=== PATIENT | female | born 1970 | race Caucasian/White ===

== ENCOUNTER → 2016-07-16 | Outpatient (CLI) | payer BC ==
[2016-07-16 09:47] LABS: Basophils # (A) 0.1 k/uL (0-0.2); Basophils % (A) 2 %; CH 31.1; CHCM 34.1; Eosinophils # (A) 0.1 k/uL (0-0.7); Eosinophils % (A) 2 %; HCT 43.3 % (34.0-46.0); HGB 14.5 gm/dL (11.4-16.0); Luc # (Auto) 0.12; Luc % (Auto) 2; Lymphocytes # (A) 2.2 k/uL (1.0-4.8); Lymphocytes % (A) 42 %; MCH 30.7 pg (25.0-35.0); MCHC 33.6 g/dL (31.0-37.0); MCV 91.5 fL (80.0-100.0); Mean Platelet Volume 8.7; Monocytes # (A) 0.2 k/uL (0-1.0); Monocytes % (A) 4 %; Neutrophils # (A) 2.5 k/uL (1.3-7.7); Neutrophils % (A) 47 %; RBC 4.73 m/uL (3.80-5.40); RDW 12.4 % (11.5-15.5); WBC 5.2 k/uL (3.8-10.6)
[2016-07-16 10:22] LABS: Bilirubin, Delta 0.2 mg/dL (0.0-0.2); Calcium 10.2 mg/dL (8.4-10.2); Potassium 4.7 mmol/L (3.5-5.1); Total Bilirubin 1.1 mg/dL (0.2-1.3); Total Protein 7.6 g/dL (6.3-8.2)
[2016-07-16 15:51] LABS: DHEA Sulfate 95.5 ug/dL (26.0-430.0)
== END ==
LOC: LABWHC1 09:21
PROVIDERS: ATTEND Family Medicine
DX: K76.89 Other specified diseases of liver (principal); E34.9 Endocrine disorder, unspecified; G47.00 Insomnia, unspecified; R53.81 Other malaise
CPT/HCPCS: 36415; 80053; 82248; 82627; 82670; 84140; 84144; 84402; 84403; 84439; 84443; 84481; 85025